=== PATIENT | male | born 1965 | race African-American/Black ===

== ENCOUNTER 2020-06-19 11:57 | Inpatient (IN) ==
[2020-06-19 12:50] LABS: Basophils % 0.2 % (0.0-0.8); Eosinophils # 0.1 10*3/uL (0.0-0.87); Eosinophils % 0.4 % (0.00-10.9); Hematocrit 37.1 VOL% (42.0-52.0); Immature Granulocytes % 0.7 %; Immature Granulocytes Absolute 0.11 #; Lymphocytes # 0.9 10*3/uL (1.4-4.0); Lymphocytes % 5.7 % (21.2-54.2); Mean Corpuscular HGB Conc 32.3 GM/DL (32-36); Mean Corpuscular Volume 88.5 FL (87-102); Mean Platelet Volume 9.9 FL (9.6-12.0); Monocytes % 6.8 % (1.7-12.7); Neutrophils % 86.2 % (38.7-73.9); Platelet Count 350 T/CUMM (130-400); Red Blood Count 4.19 MC/CUMM (3.8-5.5); Red Cell Distribution Width 14.3 % (9.3-17.3); White Blood Count 16.6 T/CUMM (4-12)
[2020-06-19 13:12] LABS: Calcium 12.9 MG/DL (8.5-10.1); Osmolality,Calculated 269.1 MOS/KG (273-304); Potassium 3.4 MMOL/L (3.5-5.1)
[2020-06-19 13:22] LABS: Albumin 2.8 G/DL (3.4-5.0); Bilirubin,Direct 0.14 MG/DL (0.0-0.20); Bilirubin,Indirect 0.4 MG/DL (0.0-1.0); Bilirubin,Total 0.5 MG/DL (0.2-1.0); Total Protein 7.8 G/DL (6.4-8.2)
[2020-06-19] MEDS ORDERED: GLUCAGON 1 MG VIAL IM PRN (14:42)
[2020-06-19] MEDS ORDERED: DEXTROSE 50% 25 GM/50 ML VIAL IV PRN (14:42)
[2020-06-19] MEDS ORDERED: MORPHINE 4 MG/1 ML VIAL IV PRN (14:52)
[2020-06-19] MEDS ORDERED: NICOTINE 21 MG/24 HR PATCH TRANSDERM PRN (14:52)
[2020-06-19] MEDS ORDERED: ONDANSETRON 4 MG/2 ML VIAL IV PRN (14:52)
[2020-06-19] MEDS ORDERED: LORazepam 2 MG/1 ML VIAL IV PRN (14:58)
[2020-06-19] MEDS ORDERED: DEXTROSE 5% NACL 0.9% 1,000 ML IV SCH (15:00)
[2020-06-19] MEDS: POTASSIUM CHLORIDE RIDER 10 MEQ in PREMIX 1 EACH IV SCH ×2 (15:12→16:45)
[2020-06-19] MEDS ORDERED: CALCITONIN 400 UNIT/2 ML VIAL SUBCUT SCH (17:11)
[2020-06-19] MEDS ORDERED: POTASSIUM CHLORIDE RIDER 10 MEQ in PREMIX 1 EACH IV ONE (17:19)
[2020-06-19] MEDS ORDERED: POTASSIUM CHLORIDE INJ 10 MEQ in SODIUM CHLORIDE 0.45% 1,000 ML IV SCH (17:30)
[2020-06-19] MEDS ORDERED: POTASSIUM CHLORIDE INJ 10 MEQ in SODIUM CHLORIDE 0.9% 1,000 ML IV SCH (17:30)
[2020-06-19] MEDS ORDERED: SODIUM CHLORIDE 0.9% 1,000 ML IV SCH (17:30)
[2020-06-19] MEDS: SODIUM CHLORIDE 0.9% 1,000 ML IV SCH (18:03)
[2020-06-19] MEDS: ENOXAPARIN 40 MG/0.4 ML SYRINGE SUBCUT SCH (20:41)
[2020-06-20 04:42] LABS: Basophils # 0.1 10*3/uL (0.0-0.2); Basophils % 0.2 % (0.0-0.8); Eosinophils # 0.1 10*3/uL (0.0-0.87); Eosinophils % 0.2 % (0.00-10.9); Hematocrit 37.2 VOL% (42.0-52.0); Hemoglobin 11.8 GM/DL (14.0-18.0); Immature Granulocytes % 0.7 %; Lymphocytes # 1.2 10*3/uL (1.4-4.0); Lymphocytes % 4.6 % (21.2-54.2); Mean Corpuscular HGB Conc 31.7 GM/DL (32-36); Mean Corpuscular Volume 90.7 FL (87-102); Mean Platelet Volume 10.2 FL (9.6-12.0); Monocytes % 8.7 % (1.7-12.7); Neutrophils % 85.6 % (38.7-73.9); Platelet Count 326 T/CUMM (130-400); Red Cell Distribution Width 14.5 % (9.3-17.3); White Blood Count 27.2 T/CUMM (4-12)
[2020-06-20] MEDS: SODIUM CHLORIDE 0.9% 1,000 ML IV SCH ×4 (05:00→21:46)
[2020-06-20 05:02] LABS: Band Neutrophils 1 % (0-10); Lymphocytes 2 % (20-55); Platelet Estimate Adequate; Segmented Neutrophils 88 % (50-85); Total Cells Counted 100
[2020-06-20 05:05] LABS: Albumin 2.6 G/DL (3.4-5.0); Bilirubin,Total 0.9 MG/DL (0.2-1.0); Calcium 12.6 MG/DL (8.5-10.1); Osmolality,Calculated 271.8 MOS/KG (273-304); Potassium 3.5 MMOL/L (3.5-5.1); Total Protein 7.2 G/DL (6.4-8.2)
[2020-06-20] MEDS ORDERED: MAGNESIUM SULF RIDER 4 GM in PREMIX 1 EACH IV ONE (07:35)
[2020-06-20] MEDS: PANTOPRAZOLE 40 MG VIAL IV SCH (08:29)
[2020-06-20] MEDS ORDERED: CALCITONIN 400 UNIT/2 ML VIAL SUBCUT SCH (09:00)
[2020-06-20] MEDS ORDERED: MAGNESIUM SULF RIDER 2 GM in PREMIX 1 EACH IV PRN (10:24)
[2020-06-20] MEDS ORDERED: MAGNESIUM SULF RIDER 4 GM in PREMIX 1 EACH IV PRN (10:24)
[2020-06-20] MEDS ORDERED: LOPERAMIDE 1 MG/7.5 ML 30 ML BOTTLE PO ONE (20:05)
[2020-06-20] MEDS ORDERED: LOPERAMIDE 1 MG/7.5 ML 30 ML BOTTLE PO PRN (20:05)
[2020-06-20] MEDS: ENOXAPARIN 40 MG/0.4 ML SYRINGE SUBCUT SCH (21:46)
[2020-06-21] MEDS: SODIUM CHLORIDE 0.9% 1,000 ML IV SCH ×4 (00:44→20:28)
[2020-06-21] MEDS: PANTOPRAZOLE 40 MG VIAL IV SCH (19:04)
[2020-06-21] MEDS: ENOXAPARIN 40 MG/0.4 ML SYRINGE SUBCUT SCH (20:29)
[2020-06-22] MEDS: SODIUM CHLORIDE 0.9% 1,000 ML IV SCH ×5 (01:09→22:40)
[2020-06-22] MEDS: PANTOPRAZOLE 40 MG VIAL IV SCH (09:06)
[2020-06-22] MEDS: ENOXAPARIN 40 MG/0.4 ML SYRINGE SUBCUT SCH (22:32)
[2020-06-23] MEDS: SODIUM CHLORIDE 0.9% 1,000 ML IV SCH ×3 (05:01→10:42)
[2020-06-23] MEDS: PANTOPRAZOLE 40 MG VIAL IV SCH (09:41)
[2020-06-23] MEDS: ENOXAPARIN 40 MG/0.4 ML SYRINGE SUBCUT SCH (21:07)
[2020-06-23] MEDS: AMOXICILLIN/CLAV 875 MG TABLET PO SCH (21:13)
[2020-06-24 05:26] LABS: Basophils % 0.2 % (0.0-0.8); Eosinophils # 0.1 10*3/uL (0.0-0.87); Eosinophils % 0.8 % (0.00-10.9); Hematocrit 31.8 VOL% (42.0-52.0); Hemoglobin 10.8 GM/DL (14.0-18.0); Immature Granulocytes % 0.6 %; Immature Granulocytes Absolute 0.07 #; Lymphocytes # 1.7 10*3/uL (1.4-4.0); Lymphocytes % 14.2 % (21.2-54.2); Mean Corpuscular Volume 84.1 FL (87-102); Mean Platelet Volume 10.7 FL (9.6-12.0); Neutrophils % 72.2 % (38.7-73.9); Platelet Count 310 T/CUMM (130-400); Red Blood Count 3.78 MC/CUMM (3.8-5.5); White Blood Count 11.9 T/CUMM (4-12)
[2020-06-24 05:58] LABS: Calcium 10.3 MG/DL (8.5-10.1)
[2020-06-24 05:59] LABS: Potassium 2.1 MMOL/L (3.5-5.1)
[2020-06-24] MEDS ORDERED: POTASSIUM CHLORIDE 20 MEQ TABLET PO PRN (06:42)
[2020-06-24] MEDS ORDERED: POTASSIUM CHLORIDE 20 MEQ/15 ML UDCUP PO PRN (07:00)
[2020-06-24] MEDS ORDERED: MAGNESIUM SULF RIDER 4 GM/100 ML PREMIX IV ONE (09:11)
[2020-06-24] MEDS: POTASSIUM CHLORIDE RIDER 10 MEQ in PREMIX 1 EACH IV SCH ×4 (09:30→12:59)
[2020-06-24] MEDS: PANTOPRAZOLE 40 MG VIAL IV SCH (09:30)
[2020-06-24] MEDS: AMOXICILLIN/CLAV 875 MG TABLET PO SCH (09:30)
[2020-06-24] MEDS: LEVOFLOXACIN 500 MG TABLET PO SCH (12:59)
[2020-06-24] MEDS: fentaNYL 12 MCG/HR PATCH TRANSDERM SCH (12:59)
[2020-06-24 15:41] LABS: Potassium 2.5 MMOL/L (3.5-5.1)
[2020-06-24] MEDS: ENOXAPARIN 40 MG/0.4 ML SYRINGE SUBCUT SCH (21:51)
[2020-06-25 05:22] LABS: Basophils % 0.3 % (0.0-0.8); Eosinophils # 0.1 10*3/uL (0.0-0.87); Eosinophils % 0.8 % (0.00-10.9); Hemoglobin 11.5 GM/DL (14.0-18.0); Immature Granulocytes % 0.4 %; Immature Granulocytes Absolute 0.04 #; Lymphocytes # 1.7 10*3/uL (1.4-4.0); Lymphocytes % 14.6 % (21.2-54.2); Mean Corpuscular HGB Conc 32.9 GM/DL (32-36); Mean Corpuscular Volume 87.3 FL (87-102); Mean Platelet Volume 10.9 FL (9.6-12.0); Monocytes % 13.4 % (1.7-12.7); Neutrophils % 70.5 % (38.7-73.9); Platelet Count 324 T/CUMM (130-400); Red Blood Count 4.01 MC/CUMM (3.8-5.5); White Blood Count 11.3 T/CUMM (4-12)
[2020-06-25 05:34] LABS: Calcium 10.7 MG/DL (8.5-10.1); Osmolality,Calculated 263.2 MOS/KG (273-304)
[2020-06-25 05:40] LABS: Potassium 2.3 MMOL/L (3.5-5.1)
[2020-06-25] MEDS ORDERED: MAGNESIUM SULF INJ 3 GM in SODIUM CHLORIDE 0.9% 100 ML IV ONE (05:54)
[2020-06-25] MEDS ORDERED: POTASSIUM CHLORIDE RIDER 10 MEQ in PREMIX 1 EACH IV PRN (06:51)
[2020-06-25] MEDS: LEVOFLOXACIN 500 MG TABLET PO SCH (09:26)
[2020-06-25] MEDS: PANTOPRAZOLE 40 MG VIAL IV SCH (09:27)
[2020-06-25] MEDS: POTASSIUM CHLORIDE RIDER 10 MEQ in PREMIX 1 EACH IV PRN ×6 (09:41→15:13)
[2020-06-25] MEDS ORDERED: MAGNESIUM SULF RIDER 2 GM/50 ML PREMIX IV ONE (12:58)
[2020-06-25] MEDS: ENOXAPARIN 40 MG/0.4 ML SYRINGE SUBCUT SCH (21:07)
[2020-06-26 04:00] LABS: Basophils % 0.2 % (0.0-0.8); Eosinophils # 0.1 10*3/uL (0.0-0.87); Eosinophils % 1.2 % (0.00-10.9); Hematocrit 31.7 VOL% (42.0-52.0); Hemoglobin 10.5 GM/DL (14.0-18.0); Immature Granulocytes % 0.4 %; Immature Granulocytes Absolute 0.04 #; Lymphocytes # 1.3 10*3/uL (1.4-4.0); Mean Corpuscular HGB Conc 33.1 GM/DL (32-36); Mean Corpuscular Volume 86.8 FL (87-102); Mean Platelet Volume 10.1 FL (9.6-12.0); Monocytes % 14.4 % (1.7-12.7); Neutrophils % 70.8 % (38.7-73.9); Platelet Count 326 T/CUMM (130-400); Red Blood Count 3.65 MC/CUMM (3.8-5.5); Red Cell Distribution Width 14.1 % (9.3-17.3); White Blood Count 9.9 T/CUMM (4-12)
[2020-06-26 04:20] LABS: Alanine Aminotransferase 12 U/L (16-61); Albumin 2.1 G/DL (3.4-5.0); Alkaline Phosphatase 76 U/L (45-117); Aspartate Amino Transferase 12 U/L (0-37); Bilirubin,Total < 0.39 MG/DL (0.2-1.0); Blood Urea Nitrogen 4 MG/DL (7-18); Calcium 10.3 MG/DL (8.5-10.1); Carbon Dioxide 32 MMOL/L (21-32); Estimated Glom Filtration Rate 135 ML/MIN; Glucose 111 MG/DL (74-106); Total Protein 5.9 G/DL (6.4-8.2)
[2020-06-26 04:30] LABS: Osmolality,Calculated 267.1 MOS/KG (273-304); Potassium 2.6 MMOL/L (3.5-5.1); Sodium 135 MMOL/L (136-145)
[2020-06-26] MEDS: POTASSIUM CHLORIDE RIDER 10 MEQ in PREMIX 1 EACH IV PRN ×4 (06:36→17:22)
[2020-06-26] MEDS: PANTOPRAZOLE 40 MG VIAL IV SCH (10:05)
[2020-06-26] MEDS: LEVOFLOXACIN 500 MG TABLET PO SCH (10:06)
[2020-06-26] MEDS ORDERED: MAGNESIUM SULF RIDER 2 GM/50 ML PREMIX IV ONE (17:25)
[2020-06-26] MEDS: POTASSIUM CHLORIDE RIDER 10 MEQ in PREMIX 1 EACH IV SCH (19:45)
[2020-06-26] MEDS: ENOXAPARIN 40 MG/0.4 ML SYRINGE SUBCUT SCH (21:23)
[2020-06-26] MEDS ORDERED: POTASSIUM CHLORIDE 20 MEQ/15 ML UDCUP PO ONE (23:50)
[2020-06-27] MEDS: POTASSIUM CHLORIDE RIDER 10 MEQ in PREMIX 1 EACH IV SCH ×2 (02:26→02:27)
[2020-06-27 06:23] LABS: Basophils % 0.2 % (0.0-0.8); Eosinophils # 0.1 10*3/uL (0.0-0.87); Eosinophils % 1.1 % (0.00-10.9); Hematocrit 33.7 VOL% (42.0-52.0); Hemoglobin 10.8 GM/DL (14.0-18.0); Immature Granulocytes % 0.4 %; Immature Granulocytes Absolute 0.04 #; Lymphocytes # 1.4 10*3/uL (1.4-4.0); Lymphocytes % 14.9 % (21.2-54.2); Mean Corpuscular Volume 87.5 FL (87-102); Mean Platelet Volume 9.9 FL (9.6-12.0); Monocytes % 13.5 % (1.7-12.7); Neutrophils % 69.9 % (38.7-73.9); Platelet Count 335 T/CUMM (130-400); Red Blood Count 3.85 MC/CUMM (3.8-5.5); Red Cell Distribution Width 14.2 % (9.3-17.3); White Blood Count 9.4 T/CUMM (4-12)
[2020-06-27 06:50] LABS: Calcium 10.7 MG/DL (8.5-10.1); Potassium 2.9 MMOL/L (3.5-5.1)
[2020-06-27] MEDS ORDERED: POTASSIUM CHLORIDE 20 MEQ/15 ML UDCUP PO ONE (08:21)
[2020-06-27] MEDS ORDERED: MAGNESIUM GLUCONATE 200 MG/ML 30 ML/BOTTLE PO ONE (08:22)
[2020-06-27] MEDS: LEVOFLOXACIN 500 MG TABLET PO SCH (08:57)
[2020-06-27] MEDS: fentaNYL 12 MCG/HR PATCH TRANSDERM SCH (08:58)
[2020-06-27] MEDS ORDERED: PANTOPRAZOLE 40 MG TABLET PO SCH (09:00)
[2020-06-27 11:21] VITALS: BP 102/67
== END 2020-06-27 15:25 | disposition hospice, home (50) | DRG 146 ==
LOC: N.ED 11:57 → N.EDINP 14:42 → SUATTDRO 14:42 → N.4E 16:23
PROVIDERS: ADMIT Internal Medicine; ATTEND Internal Medicine

== ENCOUNTER 2020-07-21 09:26 | Inpatient (IN) ==
[2020-07-21] MEDS ORDERED: SODIUM CHLORIDE 0.9% 1,000 ML IV STA ×2 (09:51→11:47)
[2020-07-21] MEDS ORDERED: cefTRIAXone 1,000 MG in SODIUM CHLORIDE 0.9% 100 ML IV STA (10:03)
[2020-07-21 10:40] LABS: Bacteria,Urine Occasional /HPF (Few); Bilirubin,Urine Negative (Negative); Blood, Urine Negative (Negative); Glucose,Urine (UA) Negative (Negative); Hyaline Casts,Urine 21 /LPF (0-3); Ketones,Urine Negative (Negative); Mucus,Urine Occasional /LPF (Occasional); Nitrite,Urine Negative (Negative); Protein,Urine 30 MG/DL; RBC,Urine 1 /HPF (0-4); Squamous Epithelial Cell,Urine Occasional /HPF (0-10); Urine Appearance CLEAR (Clear); Urine Color Yellow (Yellow); Urine Urobilinogen < 2.0 EU/DL (0.2-1.0)
[2020-07-21 10:57] LABS: Basophils % 0.1 % (0.0-0.8); Eosinophils % 0.1 % (0.00-10.9); Hematocrit 36.3 VOL% (42.0-52.0); Immature Granulocytes % 0.6 %; Lymphocytes % 5.8 % (21.2-54.2); Mean Corpuscular HGB Conc 30.3 GM/DL (32-36); Mean Corpuscular Volume 91.4 FL (87-102); Mean Platelet Volume 11.1 FL (9.6-12.0); Monocytes % 5.8 % (1.7-12.7); Neutrophils % 87.6 % (38.7-73.9); Platelet Count 258 T/CUMM (130-400); Red Blood Count 3.97 MC/CUMM (3.8-5.5); Red Cell Distribution Width 14.4 % (9.3-17.3); White Blood Count 16.8 T/CUMM (4-12)
[2020-07-21 11:19] LABS: Alanine Aminotransferase 11 U/L (16-61); Albumin 2.5 G/DL (3.4-5.0); Alkaline Phosphatase 95 U/L (45-117); Aspartate Amino Transferase 11 U/L (0-37); Blood Urea Nitrogen 33 MG/DL (7-18); Carbon Dioxide 31 MMOL/L (21-32); Glucose 104 MG/DL (74-106); Osmolality,Calculated 294.7 MOS/KG (273-304); Potassium 3.4 MMOL/L (3.5-5.1); Sodium 145 MMOL/L (136-145); Total Protein 7.5 G/DL (6.4-8.2)
[2020-07-21 11:21] LABS: Estimated Glom Filtration Rate 0 ML/MIN
[2020-07-21 11:22] LABS: Calcium 15.6 MG/DL (8.5-10.1)
[2020-07-21 12:26] LABS: INR 1.2; PT Patient Result 13.7 SECS (10.5-12.0); Partial Thromboplastin Time < 20.0 SECS (23.9-33.8)
[2020-07-21] MEDS ORDERED: MORPHINE 4 MG/1 ML VIAL IV PRN (13:20)
[2020-07-21] MEDS ORDERED: GLUCAGON 1 MG VIAL IM PRN (13:20)
[2020-07-21] MEDS ORDERED: ONDANSETRON 4 MG/2 ML VIAL IV PRN (13:20)
[2020-07-21] MEDS ORDERED: PROMETHAZINE 25 MG/1 ML VIAL IM PRN (13:20)
[2020-07-21] MEDS: LACTATED RINGERS 1,000 ML IV SCH ×2 (14:46→22:36)
[2020-07-21] MEDS: MEROPENEM 1,000 MG in SODIUM CHLORIDE 0.9% 100 ML IV SCH (14:46)
[2020-07-21] MEDS ORDERED: LORazepam 2 MG/1 ML VIAL IV PRN (14:58)
[2020-07-21] MEDS: CALCITONIN 400 UNIT/2 ML VIAL SUBCUT SCH ×2 (16:27→18:03)
[2020-07-21] MEDS: POTASSIUM CHLORIDE 20 MEQ PACK PO SCH (21:36)
[2020-07-21] MEDS: MAGNESIUM OXIDE 400 MG TABLET PO SCH (21:37)
[2020-07-21] MEDS: DOCUSATE SODIUM 100 MG/10 ML UDCUP PO SCH (21:37)
[2020-07-21] MEDS: ENOXAPARIN 40 MG/0.4 ML SYRINGE SUBCUT SCH (21:37)
[2020-07-22 05:55] LABS: Basophils % 0.2 % (0.0-0.8); Eosinophils % 0.1 % (0.00-10.9); Hemoglobin 11.2 GM/DL (14.0-18.0); Immature Granulocytes % 0.5 %; Immature Granulocytes Absolute 0.12 #; Lymphocytes # 1.6 10*3/uL (1.4-4.0); Lymphocytes % 6.9 % (21.2-54.2); Mean Corpuscular HGB Conc 30.3 GM/DL (32-36); Mean Corpuscular Volume 91.1 FL (87-102); Neutrophils % 88.3 % (38.7-73.9); Platelet Count 288 T/CUMM (130-400); Red Blood Count 4.06 MC/CUMM (3.8-5.5); Red Cell Distribution Width 14.5 % (9.3-17.3); White Blood Count 22.5 T/CUMM (4-12)
[2020-07-22] MEDS: CALCITONIN 400 UNIT/2 ML VIAL SUBCUT SCH ×2 (06:33→18:16)
[2020-07-22] MEDS: PANTOPRAZOLE 40 MG TABLET PO SCH (06:33)
[2020-07-22] MEDS: LACTATED RINGERS 1,000 ML IV SCH (06:33)
[2020-07-22 07:36] LABS: Lymphocytes 5 % (20-55); Platelet Estimate Normal; Segmented Neutrophils 93 % (50-85); Total Cells Counted 100
[2020-07-22 08:54] LABS: Osmolality,Calculated 298.3 MOS/KG (273-304); Potassium 3.5 MMOL/L (3.5-5.1)
[2020-07-22 09:01] LABS: Calcium 14.3 MG/DL (8.5-10.1)
[2020-07-22] MEDS: fentaNYL 12 MCG/HR PATCH TRANSDERM SCH (10:56)
[2020-07-22] MEDS: THIAMINE 200 MG/2 ML VIAL IV SCH (10:56)
[2020-07-22] MEDS: DOCUSATE SODIUM 100 MG/10 ML UDCUP PO SCH ×2 (10:56→22:33)
[2020-07-22] MEDS: MAGNESIUM OXIDE 400 MG TABLET PO SCH ×2 (10:57→22:33)
[2020-07-22] MEDS: MEROPENEM 1,000 MG in SODIUM CHLORIDE 0.9% 100 ML IV SCH ×2 (10:57→22:33)
[2020-07-22] MEDS: POTASSIUM CHLORIDE 20 MEQ PACK PO SCH ×2 (10:57→22:34)
[2020-07-22] MEDS: FOLIC ACID 1 MG TABLET PO SCH (10:57)
[2020-07-22] MEDS: SODIUM CHLORIDE 0.45% 1,000 ML IV SCH ×2 (10:58→22:33)
[2020-07-22] MEDS: ENOXAPARIN 40 MG/0.4 ML SYRINGE SUBCUT SCH (22:33)
[2020-07-23 05:24] LABS: Basophils % 0.2 % (0.0-0.8); Eosinophils # 0.1 10*3/uL (0.0-0.87); Eosinophils % 0.5 % (0.00-10.9); Hematocrit 35.5 VOL% (42.0-52.0); Hemoglobin 11.4 GM/DL (14.0-18.0); Immature Granulocytes % 0.7 %; Immature Granulocytes Absolute 0.13 #; Lymphocytes # 1.2 10*3/uL (1.4-4.0); Mean Corpuscular HGB Conc 32.1 GM/DL (32-36); Mean Corpuscular Volume 88.3 FL (87-102); Mean Platelet Volume 12.4 FL (9.6-12.0); Monocytes % 5.4 % (1.7-12.7); Neutrophils % 87.2 % (38.7-73.9); Platelet Count 244 T/CUMM (130-400); Red Blood Count 4.02 MC/CUMM (3.8-5.5); Red Cell Distribution Width 14.6 % (9.3-17.3); White Blood Count 19.6 T/CUMM (4-12)
[2020-07-23 05:56] LABS: Osmolality,Calculated 297.1 MOS/KG (273-304); Potassium 3.3 MMOL/L (3.5-5.1)
[2020-07-23 05:57] LABS: Hypochromasia 1+
[2020-07-23 05:58] LABS: Microcytosis 1+; Platelet Estimate Normal
[2020-07-23] MEDS: SODIUM CHLORIDE 0.45% 1,000 ML IV SCH ×2 (06:09→15:30)
[2020-07-23] MEDS: CALCITONIN 400 UNIT/2 ML VIAL SUBCUT SCH ×2 (06:10→17:02)
[2020-07-23] MEDS: PANTOPRAZOLE 40 MG TABLET PO SCH (06:11)
[2020-07-23 06:26] LABS: Calcium 14.2 MG/DL (8.5-10.1)
[2020-07-23] MEDS ORDERED: MAGNESIUM SULF RIDER 4 GM/100 ML PREMIX IV PRN (07:57)
[2020-07-23] MEDS ORDERED: POTASSIUM CHLORIDE 20 MEQ TABLET PO ONE (07:58)
[2020-07-23] MEDS: MEROPENEM 1,000 MG in SODIUM CHLORIDE 0.9% 100 ML IV SCH ×2 (09:10→22:32)
[2020-07-23] MEDS: THIAMINE 200 MG/2 ML VIAL IV SCH (09:10)
[2020-07-23] MEDS ORDERED: TUBERCULIN SKIN TEST 0.1 ML SYRINGE INTRADERM ONE (09:54)
[2020-07-23] MEDS: FOLIC ACID 1 MG TABLET PO SCH (10:46)
[2020-07-23] MEDS: DOCUSATE SODIUM 100 MG/10 ML UDCUP PO SCH ×2 (10:46→22:32)
[2020-07-23] MEDS: MAGNESIUM OXIDE 400 MG TABLET PO SCH ×2 (10:46→22:32)
[2020-07-23] MEDS: POTASSIUM CHLORIDE 20 MEQ PACK PO SCH ×2 (10:46→22:33)
[2020-07-23] MEDS ORDERED: ZOLEDRONIC ACID 4 MG/100 ML PREMIX IV ONE (11:00)
[2020-07-23] MEDS: ENOXAPARIN 40 MG/0.4 ML SYRINGE SUBCUT SCH (22:32)
[2020-07-24] MEDS: SODIUM CHLORIDE 0.45% 1,000 ML IV SCH ×2 (05:16→16:57)
[2020-07-24 08:30] LABS: Basophils % 0.1 % (0.0-0.8); Eosinophils # 0.1 10*3/uL (0.0-0.87); Eosinophils % 0.5 % (0.00-10.9); Immature Granulocytes % 1.7 %; Immature Granulocytes Absolute 0.36 #; Lymphocytes # 1.6 10*3/uL (1.4-4.0); Lymphocytes % 7.3 % (21.2-54.2); Mean Corpuscular HGB Conc 31.4 GM/DL (32-36); Mean Corpuscular Volume 88.4 FL (87-102); Mean Platelet Volume 12.5 FL (9.6-12.0); Monocytes % 4.4 % (1.7-12.7); Platelet Count 188 T/CUMM (130-400); Red Blood Count 3.96 MC/CUMM (3.8-5.5); Red Cell Distribution Width 14.6 % (9.3-17.3); White Blood Count 21.3 T/CUMM (4-12)
[2020-07-24] MEDS: MAGNESIUM OXIDE 400 MG TABLET PO SCH ×2 (08:39→21:44)
[2020-07-24] MEDS: THIAMINE 200 MG/2 ML VIAL IV SCH (08:39)
[2020-07-24] MEDS: FOLIC ACID 1 MG TABLET PO SCH (08:40)
[2020-07-24] MEDS: PANTOPRAZOLE 40 MG TABLET PO SCH (08:40)
[2020-07-24] MEDS: DOCUSATE SODIUM 100 MG/10 ML UDCUP PO SCH ×2 (08:40→21:44)
[2020-07-24] MEDS: POTASSIUM CHLORIDE 20 MEQ PACK PO SCH ×2 (08:40→21:45)
[2020-07-24 08:44] LABS: Osmolality,Calculated 286.8 MOS/KG (273-304); Potassium 2.7 MMOL/L (3.5-5.1)
[2020-07-24 08:46] LABS: Calcium 14.7 MG/DL (8.5-10.1)
[2020-07-24 08:52] LABS: Band Neutrophils 1 % (0-10); Lymphocytes 4 % (20-55); Platelet Estimate Adequate; Segmented Neutrophils 90 % (50-85); Total Cells Counted 100
[2020-07-24 08:53] LABS: Hypochromasia 1+; Microcytosis 1+
[2020-07-24] MEDS: CALCITONIN 400 UNIT/2 ML VIAL SUBCUT SCH (09:47)
[2020-07-24] MEDS ORDERED: MAGNESIUM SULF RIDER 4 GM/100 ML PREMIX IV ONE (11:00)
[2020-07-24] MEDS ORDERED: POTASSIUM CHLORIDE 20 MEQ PACK PO ONE (11:00)
[2020-07-24] MEDS: MEROPENEM 1,000 MG in SODIUM CHLORIDE 0.9% 100 ML IV SCH ×2 (11:31→21:44)
[2020-07-24] MEDS ORDERED: POTASSIUM CHLORIDE 20 MEQ/15 ML UDCUP PO ONE (17:00)
[2020-07-24] MEDS: ENOXAPARIN 40 MG/0.4 ML SYRINGE SUBCUT SCH (21:44)
[2020-07-25] MEDS: SODIUM CHLORIDE 0.45% 1,000 ML IV SCH ×3 (05:55→18:13)
[2020-07-25] MEDS: PANTOPRAZOLE 40 MG TABLET PO SCH (05:55)
[2020-07-25 06:37] LABS: Basophils % 0.2 % (0.0-0.8); Eosinophils # 0.1 10*3/uL (0.0-0.87); Eosinophils % 0.6 % (0.00-10.9); Hematocrit 39.8 VOL% (42.0-52.0); Hemoglobin 12.2 GM/DL (14.0-18.0); Immature Granulocytes % 0.6 %; Lymphocytes # 1.5 10*3/uL (1.4-4.0); Lymphocytes % 8.6 % (21.2-54.2); Mean Corpuscular HGB Conc 30.7 GM/DL (32-36); Mean Corpuscular Volume 90.9 FL (87-102); Mean Platelet Volume 12.3 FL (9.6-12.0); Monocytes % 4.2 % (1.7-12.7); Neutrophils % 85.8 % (38.7-73.9); Platelet Count 174 T/CUMM (130-400); Red Blood Count 4.38 MC/CUMM (3.8-5.5); Red Cell Distribution Width 14.6 % (9.3-17.3); White Blood Count 17.7 T/CUMM (4-12)
[2020-07-25 07:01] LABS: Hypochromasia 1+; Microcytosis 1+
[2020-07-25 07:02] LABS: Platelet Estimate Adequate
[2020-07-25] MEDS: THIAMINE 100 MG TABLET PO SCH (08:44)
[2020-07-25] MEDS: POTASSIUM CHLORIDE 20 MEQ PACK PO SCH ×2 (08:44→22:45)
[2020-07-25] MEDS: FOLIC ACID 1 MG TABLET PO SCH (08:44)
[2020-07-25] MEDS: DOCUSATE SODIUM 100 MG/10 ML UDCUP PO SCH ×2 (08:44→22:44)
[2020-07-25] MEDS: MAGNESIUM OXIDE 400 MG TABLET PO SCH ×2 (08:44→22:45)
[2020-07-25] MEDS: fentaNYL 12 MCG/HR PATCH TRANSDERM SCH (08:44)
[2020-07-25] MEDS: MEROPENEM 1,000 MG in SODIUM CHLORIDE 0.9% 100 ML IV SCH (08:45)
[2020-07-25 10:31] LABS: Osmolality,Calculated 273.7 MOS/KG (273-304); Potassium 3.2 MMOL/L (3.5-5.1)
[2020-07-25 10:34] LABS: Calcium 14.1 MG/DL (8.5-10.1)
[2020-07-25] MEDS: DEXTROSE 50% 25 GM/50 ML VIAL IV PRN (10:42)
[2020-07-25] MEDS ORDERED: ZOLEDRONIC ACID 4 MG/100 ML PREMIX IV ONE (11:00)
[2020-07-25] MEDS ORDERED: POTASSIUM CHLORIDE 20 MEQ/15 ML UDCUP PO ONE (17:00)
[2020-07-25] MEDS: ENOXAPARIN 40 MG/0.4 ML SYRINGE SUBCUT SCH (22:44)
[2020-07-26] MEDS: SODIUM CHLORIDE 0.45% 1,000 ML IV SCH ×3 (04:10→23:07)
[2020-07-26 05:33] LABS: Basophils % 0.1 % (0.0-0.8); Eosinophils # 0.1 10*3/uL (0.0-0.87); Eosinophils % 0.3 % (0.00-10.9); Hematocrit 34.3 VOL% (42.0-52.0); Hemoglobin 10.9 GM/DL (14.0-18.0); Immature Granulocytes % 0.6 %; Immature Granulocytes Absolute 0.14 #; Lymphocytes # 1.2 10*3/uL (1.4-4.0); Lymphocytes % 5.5 % (21.2-54.2); Mean Corpuscular HGB Conc 31.8 GM/DL (32-36); Mean Corpuscular Volume 86.6 FL (87-102); Mean Platelet Volume 12.4 FL (9.6-12.0); Monocytes % 3.7 % (1.7-12.7); Neutrophils % 89.8 % (38.7-73.9); Platelet Count 199 T/CUMM (130-400); Red Blood Count 3.96 MC/CUMM (3.8-5.5); Red Cell Distribution Width 14.3 % (9.3-17.3); White Blood Count 21.7 T/CUMM (4-12)
[2020-07-26 05:43] LABS: Osmolality,Calculated 273.7 MOS/KG (273-304)
[2020-07-26 05:48] LABS: Calcium 14.5 MG/DL (8.5-10.1)
[2020-07-26 05:55] LABS: Hypochromasia Slight; Lymphocytes 6 % (20-55); Microcytosis Slight; Platelet Estimate Adequate; Segmented Neutrophils 90 % (50-85); Total Cells Counted 100
[2020-07-26] MEDS ORDERED: MAGNESIUM SULF RIDER 2 GM/50 ML PREMIX IV ONE (09:00)
[2020-07-26] MEDS: DOCUSATE SODIUM 100 MG/10 ML UDCUP PO SCH ×2 (12:01→21:59)
[2020-07-26] MEDS: POTASSIUM CHLORIDE 20 MEQ PACK PO SCH ×2 (12:02→22:00)
[2020-07-26] MEDS: FOLIC ACID 1 MG TABLET PO SCH (12:02)
[2020-07-26] MEDS: THIAMINE 100 MG TABLET PO SCH (12:02)
[2020-07-26] MEDS: MAGNESIUM OXIDE 400 MG TABLET PO SCH ×2 (12:02→21:59)
[2020-07-26] MEDS ORDERED: POTASSIUM CHLORIDE INJ 50 MEQ, MAGNESIUM SULF INJ 2 GM in SODIUM CHLORIDE 0.9% 500 ML IV ONE (15:00)
[2020-07-26] MEDS ORDERED: NICOTINE 14 MG/24 HR PATCH TRANSDERM SCH (17:00)
[2020-07-26] MEDS: AMPICILLIN/SULBACTAM 3,000 MG in SODIUM CHLORIDE 0.9% 100 ML IV SCH (20:38)
[2020-07-26] MEDS: PANTOPRAZOLE 40 MG TABLET PO SCH (21:59)
[2020-07-26] MEDS: ENOXAPARIN 40 MG/0.4 ML SYRINGE SUBCUT SCH (21:59)
[2020-07-26] MEDS: DEXTROSE 50% 25 GM/50 ML VIAL IV PRN (23:06)
[2020-07-26] MEDS: NICOTINE 14 MG/24 HR PATCH TRANSDERM SCH (23:07)
[2020-07-27] MEDS: AMPICILLIN/SULBACTAM 3,000 MG in SODIUM CHLORIDE 0.9% 100 ML IV SCH ×2 (02:20→07:39)
[2020-07-27 05:22] LABS: Basophils % 0.1 % (0.0-0.8); Eosinophils # 0.1 10*3/uL (0.0-0.87); Eosinophils % 0.5 % (0.00-10.9); Hemoglobin 11.2 GM/DL (14.0-18.0); Immature Granulocytes % 0.6 %; Immature Granulocytes Absolute 0.13 #; Lymphocytes # 0.8 10*3/uL (1.4-4.0); Lymphocytes % 3.8 % (21.2-54.2); Mean Corpuscular Volume 85.8 FL (87-102); Mean Platelet Volume 11.8 FL (9.6-12.0); Monocytes % 4.1 % (1.7-12.7); Neutrophils % 90.9 % (38.7-73.9); Platelet Count 204 T/CUMM (130-400); Red Blood Count 4.08 MC/CUMM (3.8-5.5); Red Cell Distribution Width 14.4 % (9.3-17.3); White Blood Count 20.1 T/CUMM (4-12)
[2020-07-27 05:51] LABS: Hypochromasia 1+; Lymphocytes 2 % (20-55); Microcytosis 1+; Segmented Neutrophils 91 % (50-85); Total Cells Counted 100
[2020-07-27 05:52] LABS: Platelet Estimate Normal
[2020-07-27] MEDS: PANTOPRAZOLE 40 MG TABLET PO SCH (05:58)
[2020-07-27 06:12] LABS: Albumin 2.3 G/DL (3.4-5.0); Bilirubin,Total 0.9 MG/DL (0.2-1.0); Calcium 12.9 MG/DL (8.5-10.1); Potassium 2.8 MMOL/L (3.5-5.1); Total Protein 6.9 G/DL (6.4-8.2)
[2020-07-27] MEDS: FOLIC ACID 1 MG TABLET PO SCH (10:44)
[2020-07-27] MEDS: MAGNESIUM OXIDE 400 MG TABLET PO SCH ×2 (10:44→23:31)
[2020-07-27] MEDS: DOCUSATE SODIUM 100 MG/10 ML UDCUP PO SCH ×2 (10:44→23:30)
[2020-07-27] MEDS: NICOTINE 14 MG/24 HR PATCH TRANSDERM SCH (10:45)
[2020-07-27] MEDS: POTASSIUM CHLORIDE 20 MEQ PACK PO SCH ×2 (10:46→23:31)
[2020-07-27] MEDS: THIAMINE 100 MG TABLET PO SCH (10:47)
[2020-07-27] MEDS ORDERED: POTASSIUM CHLORIDE INJ 50 MEQ in SODIUM CHLORIDE 0.9% 500 ML IV ONE (11:00)
[2020-07-27] MEDS: SODIUM CHLORIDE 0.45% 1,000 ML IV SCH (22:08)
[2020-07-27] MEDS: ENOXAPARIN 40 MG/0.4 ML SYRINGE SUBCUT SCH (23:31)
[2020-07-28] MEDS: PANTOPRAZOLE 40 MG TABLET PO SCH ×2 (04:59→06:01)
[2020-07-28] MEDS: SODIUM CHLORIDE 0.45% 1,000 ML IV SCH ×2 (05:01→05:10)
[2020-07-28 05:12] LABS: Basophils % 0.2 % (0.0-0.8); Eosinophils # 0.1 10*3/uL (0.0-0.87); Eosinophils % 0.9 % (0.00-10.9); Hematocrit 33.8 VOL% (42.0-52.0); Hemoglobin 10.5 GM/DL (14.0-18.0); Immature Granulocytes % 0.8 %; Immature Granulocytes Absolute 0.09 #; Lymphocytes # 0.8 10*3/uL (1.4-4.0); Lymphocytes % 6.5 % (21.2-54.2); Mean Corpuscular HGB Conc 31.1 GM/DL (32-36); Mean Corpuscular Volume 89.4 FL (87-102); Mean Platelet Volume 11.9 FL (9.6-12.0); Monocytes % 3.6 % (1.7-12.7); Platelet Count 163 T/CUMM (130-400); Red Blood Count 3.78 MC/CUMM (3.8-5.5); Red Cell Distribution Width 14.6 % (9.3-17.3); White Blood Count 11.9 T/CUMM (4-12)
[2020-07-28 05:37] LABS: Calcium 10.6 MG/DL (8.5-10.1); Osmolality,Calculated 275.5 MOS/KG (273-304)
[2020-07-28 06:15] LABS: Band Neutrophils 16 % (0-10); Eosinophils 2 % (0-10); Lymphocytes 7 % (20-55); Segmented Neutrophils 69 % (50-85); Total Cells Counted 100
[2020-07-28 06:16] LABS: Anisocytosis 1+; Burr Cells Few; Platelet Estimate Normal
[2020-07-28] MEDS: fentaNYL 12 MCG/HR PATCH TRANSDERM SCH (09:19)
[2020-07-28] MEDS: DOCUSATE SODIUM 100 MG/10 ML UDCUP PO SCH ×2 (09:20→21:19)
[2020-07-28] MEDS: NICOTINE 14 MG/24 HR PATCH TRANSDERM SCH (09:20)
[2020-07-28] MEDS: POTASSIUM CHLORIDE 20 MEQ PACK PO SCH ×2 (09:20→21:20)
[2020-07-28] MEDS: FOLIC ACID 1 MG TABLET PO SCH (09:20)
[2020-07-28] MEDS: MAGNESIUM OXIDE 400 MG TABLET PO SCH ×2 (09:20→21:19)
[2020-07-28] MEDS: THIAMINE 100 MG TABLET PO SCH (09:21)
[2020-07-28 09:38] LABS: Basophils % 0.1 % (0.0-0.8); Eosinophils # 0.1 10*3/uL (0.0-0.87); Eosinophils % 0.5 % (0.00-10.9); Hematocrit 32.3 VOL% (42.0-52.0); Hemoglobin 10.3 GM/DL (14.0-18.0); Immature Granulocytes % 0.8 %; Immature Granulocytes Absolute 0.17 #; Lymphocytes # 0.7 10*3/uL (1.4-4.0); Lymphocytes % 3.5 % (21.2-54.2); Mean Corpuscular HGB Conc 31.9 GM/DL (32-36); Mean Corpuscular Volume 86.4 FL (87-102); Mean Platelet Volume 12.2 FL (9.6-12.0); Monocytes % 3.8 % (1.7-12.7); Neutrophils % 91.3 % (38.7-73.9); Platelet Count 154 T/CUMM (130-400); Red Blood Count 3.74 MC/CUMM (3.8-5.5); Red Cell Distribution Width 14.5 % (9.3-17.3)
[2020-07-28 09:58] LABS: Albumin 2.1 G/DL (3.4-5.0); Bilirubin,Total 0.5 MG/DL (0.2-1.0); Osmolality,Calculated 279.3 MOS/KG (273-304); Potassium 2.9 MMOL/L (3.5-5.1); Total Protein 6.4 G/DL (6.4-8.2)
[2020-07-28 10:31] LABS: Lymphocytes 6 % (20-55); Segmented Neutrophils 89 % (50-85); Total Cells Counted 100
[2020-07-28 10:37] LABS: Hypochromasia Slight; Microcytosis Slight
[2020-07-28 10:38] LABS: Acanthocytes Few; Platelet Estimate Adequate
[2020-07-28] MEDS: DEXTROSE 50% 25 GM/50 ML VIAL IV PRN (12:07)
[2020-07-28] MEDS ORDERED: MAGNESIUM SULF RIDER 4 GM/100 ML PREMIX IV ONE (13:31)
[2020-07-28] MEDS: DEXTROSE 5% NACL 0.45% 1,000 ML IV SCH (16:29)
[2020-07-28] MEDS: ENOXAPARIN 40 MG/0.4 ML SYRINGE SUBCUT SCH (21:19)
[2020-07-29] MEDS: DEXTROSE 5% NACL 0.45% 1,000 ML IV SCH ×3 (04:54→21:05)
[2020-07-29] MEDS: PANTOPRAZOLE 40 MG TABLET PO SCH (05:40)
[2020-07-29 07:29] LABS: Basophils % 0.1 % (0.0-0.8); Eosinophils # 0.2 10*3/uL (0.0-0.87); Eosinophils % 1.6 % (0.00-10.9); Hematocrit 28.3 VOL% (42.0-52.0); Hemoglobin 9.2 GM/DL (14.0-18.0); Immature Granulocytes % 0.6 %; Immature Granulocytes Absolute 0.09 #; Lymphocytes # 0.9 10*3/uL (1.4-4.0); Mean Corpuscular HGB Conc 32.5 GM/DL (32-36); Mean Platelet Volume 12.9 FL (9.6-12.0); Monocytes % 4.5 % (1.7-12.7); Neutrophils % 87.2 % (38.7-73.9); Platelet Count 143 T/CUMM (130-400); Red Blood Count 3.33 MC/CUMM (3.8-5.5); Red Cell Distribution Width 14.7 % (9.3-17.3); White Blood Count 15.1 T/CUMM (4-12)
[2020-07-29 08:01] LABS: Albumin 1.7 G/DL (3.4-5.0); Bilirubin,Total 0.4 MG/DL (0.2-1.0); Calcium 9.4 MG/DL (8.5-10.1); Total Protein 5.7 G/DL (6.4-8.2)
[2020-07-29 08:12] LABS: Osmolality,Calculated 296.1 MOS/KG (273-304); Potassium 2.7 MMOL/L (3.5-5.1)
[2020-07-29] MEDS: NICOTINE 14 MG/24 HR PATCH TRANSDERM SCH (09:25)
[2020-07-29] MEDS: THIAMINE 100 MG TABLET PO SCH (09:25)
[2020-07-29] MEDS: FOLIC ACID 1 MG TABLET PO SCH (09:25)
[2020-07-29] MEDS: POTASSIUM CHLORIDE RIDER 10 MEQ/100 ML PREMIX IV PRN ×7 (09:25→23:37)
[2020-07-29] MEDS: MAGNESIUM OXIDE 400 MG TABLET PO SCH (09:25)
[2020-07-29] MEDS: POTASSIUM CHLORIDE 20 MEQ PACK PO SCH (09:25)
[2020-07-29] MEDS: DOCUSATE SODIUM 100 MG/10 ML UDCUP PO SCH (09:25)
[2020-07-29] MEDS: PANTOPRAZOLE 40 MG VIAL IV SCH (10:42)
[2020-07-29] MEDS: DEXTROSE 50% 25 GM/50 ML VIAL IV PRN (13:34)
[2020-07-29] MEDS: CLINDAMYCIN INJ 600 MG/50 ML PREMIX IV SCH ×2 (15:02→16:45)
[2020-07-29] MEDS: fentaNYL 25 MCG/HR PATCH TRANSDERM SCH (16:45)
[2020-07-29] MEDS: ENOXAPARIN 40 MG/0.4 ML SYRINGE SUBCUT SCH (20:28)
[2020-07-30] MEDS: CLINDAMYCIN INJ 600 MG/50 ML PREMIX IV SCH ×4 (01:00→16:42)
[2020-07-30 05:27] LABS: Basophils % 0.2 % (0.0-0.8); Eosinophils # 0.2 10*3/uL (0.0-0.87); Eosinophils % 1.7 % (0.00-10.9); Hematocrit 32.6 VOL% (42.0-52.0); Immature Granulocytes % 0.6 %; Immature Granulocytes Absolute 0.08 #; Lymphocytes % 7.1 % (21.2-54.2); Mean Corpuscular HGB Conc 32.5 GM/DL (32-36); Mean Corpuscular Volume 84.7 FL (87-102); Mean Platelet Volume 12.6 FL (9.6-12.0); Neutrophils % 85.4 % (38.7-73.9); Platelet Count 144 T/CUMM (130-400); Red Blood Count 3.85 MC/CUMM (3.8-5.5); Red Cell Distribution Width 14.9 % (9.3-17.3); White Blood Count 13.9 T/CUMM (4-12)
[2020-07-30 05:33] LABS: Hemoglobin 10.6 GM/DL (14.0-18.0)
[2020-07-30 05:48] LABS: Calcium 9.4 MG/DL (8.5-10.1); Osmolality,Calculated 277.3 MOS/KG (273-304); Potassium 3.2 MMOL/L (3.5-5.1)
[2020-07-30 05:50] LABS: Hypochromasia Slight; Microcytosis Slight; Platelet Estimate Adequate
[2020-07-30] MEDS: DEXTROSE 50% 25 GM/50 ML VIAL IV PRN (05:50)
[2020-07-30] MEDS: POTASSIUM CHLORIDE RIDER 10 MEQ/100 ML PREMIX IV PRN ×3 (06:00→23:39)
[2020-07-30] MEDS: DEXTROSE 5% NACL 0.45% 1,000 ML IV SCH ×3 (11:19→16:42)
[2020-07-30] MEDS: NICOTINE 14 MG/24 HR PATCH TRANSDERM SCH (11:19)
[2020-07-30] MEDS: PANTOPRAZOLE 40 MG VIAL IV SCH ×2 (11:20→12:19)
[2020-07-30] MEDS: ENOXAPARIN 40 MG/0.4 ML SYRINGE SUBCUT SCH (21:40)
[2020-07-31] MEDS: POTASSIUM CHLORIDE RIDER 10 MEQ/100 ML PREMIX IV PRN ×3 (00:44→02:45)
[2020-07-31] MEDS: CLINDAMYCIN INJ 600 MG/50 ML PREMIX IV SCH ×3 (00:45→16:25)
[2020-07-31] MEDS: DEXTROSE 5% NACL 0.45% 1,000 ML IV SCH ×4 (01:45→23:59)
[2020-07-31 06:01] LABS: Basophils % 0.2 % (0.0-0.8); Eosinophils # 0.2 10*3/uL (0.0-0.87); Eosinophils % 1.6 % (0.00-10.9); Hematocrit 34.1 VOL% (42.0-52.0); Hemoglobin 10.9 GM/DL (14.0-18.0); Immature Granulocytes % 0.7 %; Immature Granulocytes Absolute 0.09 #; Lymphocytes % 7.8 % (21.2-54.2); Mean Corpuscular Volume 87.2 FL (87-102); Mean Platelet Volume 12.2 FL (9.6-12.0); Monocytes % 5.5 % (1.7-12.7); Neutrophils % 84.2 % (38.7-73.9); Platelet Count 135 T/CUMM (130-400); Red Blood Count 3.91 MC/CUMM (3.8-5.5); White Blood Count 13.4 T/CUMM (4-12)
[2020-07-31 06:18] LABS: Calcium 8.4 MG/DL (8.5-10.1); Osmolality,Calculated 276.4 MOS/KG (273-304); Potassium 4.4 MMOL/L (3.5-5.1)
[2020-07-31] MEDS: PANTOPRAZOLE 40 MG VIAL IV SCH (09:31)
[2020-07-31] MEDS: NICOTINE 14 MG/24 HR PATCH TRANSDERM SCH (09:32)
[2020-07-31] MEDS: MAGNESIUM SULF RIDER 2 GM/50 ML PREMIX IV PRN (10:06)
[2020-07-31] MEDS: ENOXAPARIN 40 MG/0.4 ML SYRINGE SUBCUT SCH (22:05)
[2020-08-01] MEDS: PANTOPRAZOLE 40 MG VIAL IV SCH ×2 (07:56→08:03)
[2020-08-01] MEDS: NICOTINE 14 MG/24 HR PATCH TRANSDERM SCH ×2 (07:57→08:03)
[2020-08-01] MEDS: fentaNYL 25 MCG/HR PATCH TRANSDERM SCH (07:59)
[2020-08-01] MEDS: CLINDAMYCIN INJ 600 MG/50 ML PREMIX IV SCH ×3 (08:00→16:27)
[2020-08-01 08:36] LABS: Calcium 7.5 MG/DL (8.5-10.1); Osmolality,Calculated 273.5 MOS/KG (273-304); Potassium 3.3 MMOL/L (3.5-5.1)
[2020-08-01 08:50] LABS: Basophils % 0.1 % (0.0-0.8); Eosinophils # 0.2 10*3/uL (0.0-0.87); Eosinophils % 1.1 % (0.00-10.9); Hemoglobin 10.2 GM/DL (14.0-18.0); Immature Granulocytes % 0.7 %; Lymphocytes # 0.9 10*3/uL (1.4-4.0); Lymphocytes % 6.1 % (21.2-54.2); Mean Corpuscular HGB Conc 32.9 GM/DL (32-36); Mean Corpuscular Volume 85.2 FL (87-102); Mean Platelet Volume 12.8 FL (9.6-12.0); Monocytes % 5.2 % (1.7-12.7); Neutrophils % 86.8 % (38.7-73.9); Platelet Count 128 T/CUMM (130-400); Red Blood Count 3.64 MC/CUMM (3.8-5.5)
[2020-08-01] MEDS ORDERED: SODIUM CHLORIDE 0.45% 1,000 ML IV SCH (09:30)
[2020-08-01] MEDS: MAGNESIUM SULF RIDER 2 GM/50 ML PREMIX IV PRN (10:23)
[2020-08-01] MEDS ORDERED: fentaNYL 100 MCG/2 ML VIAL IV ONE (10:30)
[2020-08-01] MEDS ORDERED: MIDAZOLAM 2 MG/2 ML VIAL IV ONE (10:30)
[2020-08-01] MEDS: POTASSIUM CHLORIDE RIDER 10 MEQ/100 ML PREMIX IV PRN ×2 (16:28→18:27)
[2020-08-01] MEDS: DEXTROSE 5% NACL 0.45% 1,000 ML IV SCH ×2 (16:33→21:43)
[2020-08-01] MEDS: ENOXAPARIN 40 MG/0.4 ML SYRINGE SUBCUT SCH (21:43)
[2020-08-02] MEDS: CLINDAMYCIN INJ 600 MG/50 ML PREMIX IV SCH ×2 (00:48→08:51)
[2020-08-02] MEDS: DEXTROSE 5% NACL 0.45% 1,000 ML IV SCH (06:22)
[2020-08-02 07:59] LABS: Basophils % 0.2 % (0.0-0.8); Eosinophils # 0.2 10*3/uL (0.0-0.87); Hematocrit 35.6 VOL% (42.0-52.0); Hemoglobin 11.2 GM/DL (14.0-18.0); Immature Granulocytes % 0.5 %; Immature Granulocytes Absolute 0.08 #; Lymphocytes # 1.7 10*3/uL (1.4-4.0); Lymphocytes % 10.6 % (21.2-54.2); Mean Corpuscular HGB Conc 31.5 GM/DL (32-36); Mean Corpuscular Volume 86.8 FL (87-102); Mean Platelet Volume 12.2 FL (9.6-12.0); Monocytes % 4.8 % (1.7-12.7); Neutrophils % 82.9 % (38.7-73.9); Platelet Count 161 T/CUMM (130-400); White Blood Count 15.8 T/CUMM (4-12)
[2020-08-02 08:13] LABS: Calcium 7.7 MG/DL (8.5-10.1); Osmolality,Calculated 271.7 MOS/KG (273-304); Potassium 3.4 MMOL/L (3.5-5.1)
[2020-08-02 08:21] LABS: Hypochromasia Slight; Microcytosis Slight; Platelet Estimate Adequate
[2020-08-02] MEDS: NICOTINE 14 MG/24 HR PATCH TRANSDERM SCH (08:50)
[2020-08-02] MEDS: PANTOPRAZOLE 40 MG VIAL IV SCH (08:51)
[2020-08-02 14:58] VITALS: BP 141/89
[2020-08-02] MEDS: POTASSIUM CHLORIDE RIDER 10 MEQ/100 ML PREMIX IV PRN ×3 (15:14→17:07)
[2020-08-02] MEDS: MAGNESIUM SULF RIDER 2 GM/50 ML PREMIX IV PRN (15:14)
== END 2020-08-02 17:34 | DRG 146 ==
LOC: N.ED 09:26 → N.EDINP 09:26 → N.5E 13:36 → SUATTDRO 07-23 09:13 → N.5E 07-25 14:58
PROVIDERS: ADMIT Internal Medicine; ATTEND Internal Medicine
PROC: IRGITIN (2020-08-01 14:20)